=== PATIENT | female | born 1995 | race Caucasian/White ===

== ENCOUNTER 2016-10-25 14:14 | Emergency (ER) | payer OTHER ==
[~2016-10-25] VITALS: Ht 167.6 cm; Wt 83.6 kg
[2016-10-25 14:19] VITALS: BP 115/68
== END 2016-10-25 16:40 | disposition home or self-care (01) ==
LOC: ED 14:14
DX: J02.8 Acute pharyngitis due to other specified organisms (principal); J45.909 Unspecified asthma, uncomplicated

== ENCOUNTER 2017-07-01 08:35 | Emergency (ER) | payer OTHER ==
[~2017-07-01] VITALS: Ht 167.6 cm; Wt 88.9 kg
[2017-07-01 08:38] VITALS: Ht 167.6 cm; Wt 88.9 kg
[2017-07-01 09:38] VITALS: BP 132/57
== END 2017-07-01 09:36 | disposition home or self-care (01) ==
LOC: ED 08:35
DX: B34.9 Viral infection, unspecified (principal); J20.9 Acute bronchitis, unspecified; J45.909 Unspecified asthma, uncomplicated; Z88.8 Allergy status to other drugs, medicaments and biological substances
CPT/HCPCS: J7613; J7644; Q0162

== ENCOUNTER 2017-08-10 16:11 | Emergency (ER) | payer OTHER ==
[~2017-08-10] VITALS: Ht 170.2 cm; Wt 91.6 kg
[2017-08-10 16:17] VITALS: Ht 170.2 cm; Wt 91.6 kg
[2017-08-10 17:12] VITALS: BP 104/48
== END 2017-08-10 17:12 | disposition home or self-care (01) ==
LOC: ED 16:11
DX: J45.909 Unspecified asthma, uncomplicated (principal)

== ENCOUNTER 2019-01-24 19:54 | Emergency (ER) | payer OTHER ==
[~2019-01-24] VITALS: Ht 170.2 cm; Wt 87.1 kg
[2019-01-24 20:28] VITALS: Ht 170.2 cm; Wt 87.1 kg
[2019-01-24 22:28] VITALS: BP 124/74
== END 2019-01-24 22:28 | disposition home or self-care (01) ==
LOC: ED 19:54
DX: H66.91 Otitis media, unspecified, right ear (principal); B37.3 Candidiasis of vulva and vagina; J45.909 Unspecified asthma, uncomplicated; Z88.8 Allergy status to other drugs, medicaments and biological substances